=== PATIENT | male | born 1990 | race American Indian/Alaskan Native ===

== ENCOUNTER 2018-02-04 16:25 | Emergency (ER) | payer BC ==
[2018-02-04 16:53] VITALS: BP 126/90
[2018-02-04] MEDS ORDERED: DELTASONE PO ONE (19:17)
[2018-02-04] MEDS ORDERED: ULTRAM PO ONE (19:17)
--- NOTE | 2018-02-04 19:34 | Emergency Department Report ---
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 questioning history of gout presents for right foot pain and swelling 3 days patient denies fall or injury or trauma states noted pain after climbing out of truck aching swelling started next day pain exacerbated by wearing boots performing duties as logging truck driver, pain is 410 aching intermittent Exacerbated by prolonged standing and sitting lifting heavy loads relieved by rest NSAIDs is no open sores Complaint: foot injury Onset/Timin -: days(s) Injury: Foot: Right (aching swelling ) Type of Injury: other (gout ) Place: work Severity: moderate Severity scale (0 -10): 4 Improves With: NSAID Worsens With: weight bearing, movement, palpation Context: other (denies fall injury or trauma) Associated Symptoms: swelling, ambulatory. denies: numbness, tingling Treatments Prior to Arrival: NSAIDS - Related Data Previous Rx's Medication Instructions Recorded Last Taken Type Ibuprofen 800 mg PO TID 10 Days #30 tablet 02/04/18 Unknown Rx predniSONE [Deltasone] 40 mg PO QDAY 5 Days #10 tab 02/04/18 Unknown Rx Allergies Allergy/AdvReac Type Severity Reaction Status Date / Time No Known Allergies Allergy Unverified 02/04/18 16:53 ED Review of Systems ROS: Stated complaint: RIGHT FOOT PAIN Other details as noted in HPI Constitutional: denies: chills, fever Eyes: denies: eye pain, eye discharge, vision change ENT: denies: ear pain, throat pain Respiratory: denies: cough, shortness of breath, wheezing Cardiovascular: denies: chest pain, palpitations Endocrine: no symptoms reported Gastrointestinal: denies: abdominal pain, nausea, diarrhea Genitourinary: denies: urgency, dysuria Musculoskeletal: myalgia. denies: back pain, joint swelling, arthralgia Skin: denies: rash, lesions Neurological: denies: headache, weakness, paresthesias Psychiatric: denies: anxiety, depression Hematological/Lymphatic: denies: easy bleeding, easy bruising ED Past Medical Hx - Past Medical History Previous Medical History?: Yes Hx Diabetes: Yes - Surgical History Past Surgical History?: No - Social History Smoking Status: Current Some Day Smoker Substance Use Type: None - Medications Home Medications: Home Medications Medication Instructions Recorded Confirmed Last Taken Type Ibuprofen 800 mg PO TID 10 Days #30 tablet 02/04/18 Unknown Rx predniSONE [Deltasone] 40 mg PO QDAY 5 Days #10 tab 02/04/18 Unknown Rx ED Physical Exam - General Limitations: No Limitations General appearance: alert, in no apparent distress - Head Head exam: Present: atraumatic, normocephalic - Eye Eye exam: Present: normal appearance - ENT ENT exam: Present: mucous membranes moist - Neck Neck exam: Present: normal inspection - Respiratory Respiratory exam: Present: normal lung sounds bilaterally. Absent: respiratory distress - Cardiovascular Cardiovascular Exam: Present: regular rate, normal rhythm. Absent: systolic murmur, diastolic murmur, rubs, gallop - GI/Abdominal GI/Abdominal exam: Present: soft, normal bowel sounds - Rectal Rectal exam: Present: deferred - Extremities Exam Extremities exam: Present: full ROM, tenderness (right foot ), normal capillary refill. Absent: calf tenderness - Expanded Lower Extremity Exam Right Foot/Toe exam: Present: full ROM, tenderness (right lateral foot ), swelling ( right foot general swelling PPEPB +2, no edema, crty <3 sec ). Absent: abrasion , laceration, ecchymosis, deformity, dislocation, erythema, amputation, puncture wound, foreign body, calcaneal tenderness, tenderness at base of 5th metatarsal, nail avulsion Neuro vascular tendon exam: Present: no vascular compromise. Absent: pulse deficit, motor deficit, sensory deficit, tendon deficit, pallor, foot drop, peroneal nerve deficit, significant pain with passive ROM of distal joint Gait: Positive: observed and normal - Back Exam Back exam: Present: normal inspection - Neurological Exam Neurological exam: Present: alert, oriented X3, CN II-XII intact, normal gait, reflexes normal - Psychiatric Psychiatric exam: Present: normal affect, normal mood - Skin Skin exam: Present: warm, dry, intact, normal color. Absent: rash ED Course Vital Signs 02/04/18 16:50 Temperature 97.4 F L Pulse Rate 94 H Respiratory 18 Rate Blood Pressure 126/90 O2 Sat by Pulse 98 Oximetry ED Lower Extremity MDM - Radiology Data Radiology results: report reviewed, image reviewed no fracture no soft tissue abnormality - Medical Decision Making X-ray normal no no fracture no soft tissue abnormality swelling is moderate no pedal edema ppepb+2, plan: luna wrap, nsaids prednisone, follow up with pcp in 2-3 days, foot care as discussed, pt verbalized agreement and understanding of same Critical care attestation.: If time is entered above; I have spent that time in minutes in the direct care of this critically ill patient, excluding procedure time. ED Disposition Clinical Impression: Strain of foot, right Qualifiers: Encounter type: initial encounter Qualified Code(s): S96.911A - Strain of unspecified muscle and tendon at ankle and foot level, right foot, initial encounter Disposition: - TO HOME OR SELFCARE Is pt being admited?: No Does the pt Need Aspirin: No Condition: Good Instructions: Foot Sprain (ED) Prescriptions: Ibuprofen 800 mg PO TID 10 Days #30 tablet predniSONE [Deltasone] 40 mg PO QDAY 5 Days #10 tab Referrals: [facility] [Outside] - 3-5 Days Forms: Work/School Release Form(ED) Time of Disposition: 20:15
--- NOTE | 2018-02-04 20:09 | XRay Report ---
FINAL REPORT EXAM: XR FOOT 3+V RT HISTORY: foot pain swelling TECHNIQUE: Three views of the right foot PRIORS: None. FINDINGS: The bones are normally aligned and mineralized. The joint spaces are well-preserved. There is no evidence of acute fracture. The soft tissues are unremarkable. IMPRESSION: No evidence of acute fracture or subluxation.
== END 2018-02-04 20:15 | disposition home or self-care (01) ==
LOC: ED 16:25
DX: S96.911A Strain of unspecified muscle and tendon at ankle and foot level, right foot, initial encounter (principal); E11.9 Type 2 diabetes mellitus without complications; F17.200 Nicotine dependence, unspecified, uncomplicated; X58.XXXA Exposure to other specified factors, initial encounter; Y93.89 Activity, other specified; Y92.89 Other specified places as the place of occurrence of the external cause; Y99.8 Other external cause status
CPT/HCPCS: 73630; 99283; J7512